=== PATIENT | male | born 1975 ===

== ENCOUNTER 2018-11-26 15:42 | Emergency (ER) | payer OTHER ==
[~2018-11-26] VITALS: Ht 180.3 cm; Wt 66.2 kg
[~2018-11-26 15:42] MED LIST: TUSSI-PRES LIQ120 ML PO; ZITHROMAX TRI-500 MG PO
== END 2018-11-26 17:48 | disposition home or self-care (01) ==
LOC: ER 15:42
DX: S91.114A Laceration without foreign body of right lesser toe(s) without damage to nail, initial encounter (principal); S50.02XA Contusion of left elbow, initial encounter; W18.39XA Other fall on same level, initial encounter; Y93.89 Activity, other specified; Y92.098 Other place in other non-institutional residence as the place of occurrence of the external cause; Y99.8 Other external cause status

== ENCOUNTER → 2018-12-03 | Emergency (ER) | payer OTHER ==
[~2018-12-03] VITALS: Ht 180.3 cm; Wt 66.2 kg
== END | disposition left against medical advice (07) ==
LOC: ER 09:39
DX: Z53.20 Procedure and treatment not carried out because of patient's decision for unspecified reasons (principal)

== ENCOUNTER 2020-10-30 08:19 | Outpatient (CLI) | payer OTHER | END 2020-10-30 08:24 | disposition home or self-care (01) | LOC: SONOGRAMA 08:19 → MAMO-SONO 09:45 | PROVIDERS: ATTEND General Practice | DX: E03.8 Other specified hypothyroidism (principal) ==